=== PATIENT | female | born 1965 | race Caucasian/White ===

== ENCOUNTER → 2020-10-27 17:00 | Outpatient (CLI) | payer BC, SELFPAY ==
--- NOTE | ~2020-10-27 | DEXA_ITS ---
Bone Density Report Name: Louise Acevedo Age: 55 Sex: Female Ethnicity: White Date of : 1965 Indication: postmenopausal; screening for osteoporosis; hysterectomy; Referring Provider: VICENTE PAYNE Study: Bone densitometry was performed. Exam Date: October 27, 2020 Accession number: [id number] Bone Density: Region BMD T-score Z-score Classification AP Spine (L1, L2, L3) 1.045 0.2 1.5 Normal Femoral Neck (Left) 0.941 0.8 2.0 Normal Total Hip (Left) 1.026 0.7 1.5 Normal Femoral Neck (Right) 0.912 0.6 1.7 Normal Total Hip (Right) 1.002 0.5 1.3 Normal Total Hip Mean 1.014 0.6 1.4 Normal World Health Organization criteria for BMD impression classify patients as: Normal (T-score at or above -1.0), Osteopenia (T-score between -1.0 and -2.5), or Osteoporosis (T-score at or below -2.5). 10-year Fracture Risk: FRAX not reported because: All T-scores for Spine Total, Hip Total, Femoral Neck at or above -1.0 Clinical Information Provided by Patient: Has the following medical conditions: Hysterectomy Patient maximum height was 67 Menopause Age: 49 No regular weight bearing exercise Does not regularly consume dairy products Drinks caffeinated beverages Onset of menses at age 10 Number of children 4 Impression: The patient has normal bone mass. Discussion: BONE DENSITY IS ABOVE THE MINIMUM DESIRABLE LEVEL AT ALL SKELETAL SITES TESTED. This patient?s bone mineral density is above the minimum desirable level (T-score -1.0 or better) at all sites measured. The patient should follow a healthful lifestyle (good nutrition with adequate calcium and vitamin D, and appropriate weight-bearing exercise). Follow-Up: Consider repeating this study in 5 years or sooner if there is some new clinical indication. Reported by: ZBIGNIEW on 10/27/2020 5:37:00 PM. Reviewed, dictated and finalized at location AMatt MARTEL
== END ==
PROVIDERS: PCP Emergency Medicine; Visit Provider Obstetrics & Gynecology
DX: Z13.820 Encounter for screening for osteoporosis (principal); Z78.0 Asymptomatic menopausal state
CPT/HCPCS: 77080

== ENCOUNTER → 2020-10-27 17:08 | Outpatient (CLI) | payer BC, SELFPAY ==
--- NOTE | ~2020-10-27 | MM_ITS ---
EXAMINATION: MM screening [facility] BI w justo HISTORY: Screening TECHNIQUE: Craniocaudal and mediolateral oblique 3-D tomosynthesis images were obtained and synthetic 2-D images were generated. CAD analysis was submitted and interpreted. COMPARISON: Comparison to multiple prior studies sequentially, with oldest reviewed study dated 09/2012. BREAST PARENCHYMAL COMPOSITION: There are scattered areas of fibroglandular density. FINDINGS: There is no evidence of suspicious mass, calcification, or architectural distortion to sugg est malignancy in either breast. There has been no suspicious interval change. IMPRESSION: 1. No mammographic evidence of malignancy. 2. Recommend routine screening mammography in one year. BI-RADS Category 1: Negative Reviewed, dictated and finalized at location A.
== END ==
PROVIDERS: Visit Provider Obstetrics & Gynecology
DX: Z12.31 Encounter for screening mammogram for malignant neoplasm of breast (principal)
CPT/HCPCS: 77063; 77067

== ENCOUNTER → 2020-12-22 10:05 | Outpatient (CLI) | payer BC, SELFPAY ==
[2020-12-24 00:05] LABS: SARS-CoV-2 RNA PCR Negative
== END ==
PROVIDERS: PCP Emergency Medicine; Visit Provider Orthopaedic Surgery
DX: Z01.812 Encounter for preprocedural laboratory examination (principal); Z20.822 Contact with and (suspected) exposure to COVID-19
CPT/HCPCS: C9803; U0003; U0005

== ENCOUNTER → 2020-12-22 10:11 | Outpatient (CLI) | payer BC, SELFPAY ==
--- NOTE | ~2020-12-22 | XR_ITS ---
XR ankle RT 2V 12/22/2020 10:29 Indication: Right ankle pain Procedure: 2 views of the right ankle Comparison: No prior studies for comparison. Findings: There is a trimalleolar fracture with mild posterior displacement of the oblique distal fib ular fracture. Ankle mortise grossly intact. Moderate lateral soft tissue swelling. Ankle mortise int act. There is a degenerative calcaneal enthesophyte. Impression: 1: Trimalleolar fracture with mild posterior displacement of the oblique distal fibular fracture. Reviewed, dictated and finalized at location B. Impression: 1: Trimalleolar fracture with mild posterior displacement of the oblique distal fibular fracture.
== END ==
PROVIDERS: Visit Provider Emergency Medicine
DX: S82.851A Displaced trimalleolar fracture of right lower leg, initial encounter for closed fracture (principal)
CPT/HCPCS: 73600

== ENCOUNTER 2020-12-24 02:52 | Day surgery (SDC) | payer BC, SELFPAY ==
[2020-12-22 14:48] VITALS: BMI 29.0
[2020-12-24] VITALS (12 sets, daily range): BP systolic 122–158; BP diastolic 63–78; PULSE 72–85; RESP 10–16; TEMP 36.1–36.9; O2SAT 97–100
--- NOTE | ~2020-12-24 | XR_ITS ---
EXAMINATION: XR surgery orthopedic EXAM DATE: 12/24/2020 11:05 INDICATION: Right ankle ORIF. TECHNIQUE: Fluoroscopy used during XR surgery orthopedic performed by Dr. Matheus Crystal MD. Rad iologist was not present for the imaging or procedure. Total fluoroscopic time of 69 seconds. The D AP for this procedure was 0.046 mGym2. A total of 4 images sent to PACS from the exam. Correlation i s made to ankle x-ray 12/23/2019. FINDINGS: Status post right ankle ORIF. There is been interval reduction in the fibular posterior di splacement, which has been fixed with plate and screws. There are 2 screws fixing a reduced posterior malleolar fracture and a single screw bridging the medial malleolar fracture. Mortise alignment appe ars anatomic. Correlate with procedure note. IMPRESSION: Fluoroscopy used during right ankle trimalleolar ORIF. Reviewed, dictated and finalized at location A.
--- NOTE | 2020-12-24 07:04 | ECG_ITS ---
Measurements Intervals [place] Rate: 75 P: 3 ND: 189 QRS: 8 QRSD: 95 T: 52 QT: 360 QTc: 404 Interpretive Statements SINUS RHYTHM BASELINE ARTIFACT- I, III NORMAL ECG Electronically Signed On 12-24-2020 8:40:50 CDT by Christ Mike D.O.
--- NOTE | 2020-12-24 07:07 | WPDHPUPDATE1 ---
History and Physical Update Update Date/Time: 12/24/20 07:07 History and Physical has been reviewed, including an updated exam of the patient. There are NO changes in the patient's condition. Covid test negative. Risks, benefits, and alternatives have been discussed and questions answered. Patient agrees to proceed with procedure.
[2020-12-24] MEDS: ACETAMINOPHEN 500 MG TABLET 1000 MG PO (07:32)
[2020-12-24] MEDS: LACTATED RINGERS 1,000 ML 30 ML IV CONT ×2 (07:43→11:24)
[2020-12-24] MEDS: KETOROLAC 15 MG/ML VIAL (*BKC) IV PUSH (07:45)
--- NOTE | 2020-12-24 07:55 | WPDANESPNB ---
Anes - Peripheral Nerve Block Date/Time: 12/24/20 07:55 I have discussed with the patient/family/POA the placement of a peripheral nerve block for post-operative pain management, including associated risks, benefits, complications, and side effects. Alternative methods of post-operative analgesia were detailed. Questions were solicited and answers provided to the satisfaction of the patient/family/POA. Time-Out: A pre-procedural Time-Out was completed immediately before starting the procedure and confirmed: Patient Identification, Site, Procedure, Patient Position and the Availability of Requisite Equipment. Clinical Indications: Acute post-operative pain management requested by the operative surgeon. Nerve Block Insertion Note Anes-nerve block: posterior fossa sciatic (20cc) right and adductor canal (10cc) right Patient position: supine Skin prep: chlorhexidine Needle: 22 gauge, stimulating, insulated echogenic needle. Needle length: 80 mm Technique: ultrasound (in plane) Injectate: bupivacaine 0.5% with epi 5 mcg/ml (30cc) Observations: tolerated well Complications: none Procedure start time:: 850 Procedure end time:: 855
--- NOTE | 2020-12-24 08:01 | WPDANESEPPF ---
Anes - Initial Pre Proc Eval Procedure: Operation Date: 12/24/20 09:00 Proposed Procedures p Open Reduction Internal Fixation Right Trimalleolar Ankle Fracture - Matheus Crystal MD Date/Time: 12/24/20 08:01 Surgeon: Matheus Crystal MD Pre Op Diagnosis: right ankle trimalleolar fx Patient Data Age: 55 Gender: F Height: 5 ft 7 in Weight: 89.1 kg Last Vital Signs Temp 96.9 F L 12/24/20 06:55 Pulse 85 12/24/20 06:55 Resp 16 12/24/20 06:55 BP 133/74 12/24/20 06:55 Pulse Ox 99 12/24/20 06:55 Allergies Allergy/AdvReac Type Severity Reaction Status Date / Time liraglutide Allergy Intermediate Nausea and Verified 12/24/20 07:21 Vomiting oxycodone Allergy Intermediate Nausea and Verified 12/24/20 07:21 Vomiting tramadol Allergy Intermediate Palpitation Verified 12/24/20 07:21 s Home Medications Medication Instructions Recorded Confirmed Type empagliflozin 10 mg tablet See Rx Instructions .ROUTE 09/08/20 12/24/20 Rx .COMPLEX #90 tablet glyburide 5 mg tablet See Rx Instructions .ROUTE 09/08/20 12/24/20 Rx .COMPLEX #180 tablet lisinopril 20 mg tablet 20 mg PO DAILY #90 tablet 09/08/20 12/24/20 Rx sitagliptin 100 mg tablet 100 mg PO DAILY #90 tablet 09/08/20 12/24/20 Rx naproxen sodium 220 mg tablet 220 mg PO Q12H 12/22/20 12/24/20 History vitamin D47-rrtra acid 1 tablet PO DAILY 12/22/20 12/24/20 History Laboratory Tests 12/24/20 07:18 Sodium Pending Potassium Pending Chloride Pending Carbon Dioxide Pending Anion Gap Pending BUN Pending Creatinine Pending Estim Creat Clear Calc Pending Estimated GFR Pending Glucose Pending Calcium Pending Patient hx anesthesia problems: none Family hx anesthesia problems: none PMFSH Past Medical History Medical History (Updated 12/22/20 @ 13:06 by Matheus Crystal MD) Anemia Diabetes History of vaginal delivery x 4 HTN (hypertension) Hypertension Mitral valve prolapse Surgical History Surgical History History of cholecystectomy History of hysterectomy Family History Family History Grandparent Family history of malignant neoplasm of breast Diabetes mellitus Father Family history of malignant neoplasm of urinary bladder, Onset Age: 67 Mother Family history of arthritis Social History Social History Smoking status: Never smoker Alcohol intake: never Alcohol use details: RARE Substance use: never Substance use type: does not use Living arrangements: with family Spiritual care concerns: No Anes - Eval Final PreProcedure Day of Procedure 12/24/20 08:01 Patient weight: obese Heart: regular rate and rhythm Lungs: clear to auscultation Airway: Mallampati scale class II Neurological: alert and oriented Last oral intake: >/= 8 hours ASA classification: III Emergent: no Anesthetic plan: proceed Anesthesia type and monitoring: general LMA (agreeable to Nerve block for postop pain control) and standard monitoring Informed Consent: The patient's anesthetic plan and its attendant risks and benefits were discussed with the patient/family/POA. Questions were solicited and answers provided to the satisfaction of the patient/family/POA.
[2020-12-24 08:04] LABS: Anion Gap 8 mmol/L (8-16); Blood Urea Nitrogen 11 mg/dL (7-17); Calcium 9.1 mg/dL (8.4-10.2); Carbon Dioxide 25 mmol/L (22-30); Chloride 108 mmol/L (98-107); Estimated CRCL calculation 119 ml/min; Estimated Glomerular Filt Rate > 60; Glucose 154 mg/dL (65-105); Sodium 141 mmol/L (137-145)
[2020-12-24] MEDS: ceFAZolin 2 GM/D5W 50 ML 2 GM/50 ML BAG IVPB (09:02)
--- NOTE | 2020-12-24 11:35 | SUR.PHASEI ---
1136- Call to Dr. Puente to notify of patient's BG being [address] Puente no intervention needed. Will continue to monitor.
--- NOTE | 2020-12-24 11:41 | W.PM.PROC2 ---
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 She presents now for operative treatment. Description of Procedure What was done: After informed consent, the operative extremity was marked in the preoperative holding area. Patient received intravenous antibiotics. Patient was then taken to the operating room and underwent general anesthesia by the anesthesia team. They were positioned supine on the operating room table. A time-out was performed confirming the patient, site of the surgery, operative plan. Lower extremity then prepped and draped in the usual sterile surgical fashion using ChloraPrep skin solution. Foot and ankle exsanguinated and a thigh tourniquet inflated to 250 mmHg. Longitudinal incision made over the lateral ankle distal fibula with a 15 blade knife. Hemostasis controlled with electrocautery. Full-thickness soft tissue flaps developed and the fascia was incised in line with the skin incision. Fracture identified and cleared with a dental pick, irrigation and rongeur. Noted to be extensive soft tissue stripping from the fibula as well as the anterior and posterior portions of the visualized ankle joint. The distal fracture fragment was retracted posteriorly in the lateral portion of the ankle joint could be visualized. Debris was cleared from this and thorough irrigation done and suctioned. [place] elevator was able to be placed into the posterior malleolus fracture which allowed the fracture to be immobilized. The lateral malleolus was addressed. Fracture reduced and held with bone-holding clamp. Image intensification confirmed reduction of the fracture and the ankle mortise. Fixation achieved with Neutralization type fixation with a lateral plate with unicortical screws distal to fracture and bicortical screws proximal to the fracture. Good alignment and stability of the fracture noted. Image intensification used to confirm reduction of the fracture and placement of the hardware. Longitudinal incision then made with 15 blade knife over the medial distal tibia and medial malleolus. Hemostasis controlled electrocautery. Periosteum incised in line with skin incision. There is a comminuted fracture of the distal anterior medial malleolus as well as the posterior malleolus which extended around to the medial aspect of the distal tibia. The posterior tibial tendon and flexor digitorum more mobilized and retracted. Care was taken to protect the neurovascular bundle. Posterior malleolus fracture was then reduced and provisionally pinned. This was checked with image intensification. Fixation achieved with a 4.0 mm cannulated screw as well as a 2.7 mm solid screw placed from posterior to anterior. Good compression of the fracture noted. Image intensification confirmed well-maintained reduction and placement of the hardware. The medial malleolus piece was then reduced and fixed with a 2.7 mm solid screw. Image intensification confirmed final reduction of the fractures and placement of the hardware. Stress of the ankle performed with good stability of the ankle mortise in all directions. Wound thoroughly irrigated with antibiotic solution. Tourniquet released and bleeding points coagulated. Fascia repaired with 00 Vicryl interrupted suture. Subcutaneous tissue repaired with 000 Monocryl interrupted suture and 0000 nylon interrupted suture. Sterile dressings applied. Padded splint then applied. Good capillary refill noted in the toes. Palpable dorsalis pedis pulse prior to placement of the dressing. Patient awoken from anesthesia, extubated and taken
--- NOTE | 2020-12-24 12:37 | SUR.PHASEII ---
Called office about knee scooter and handicap tag. RN left a message.
--- NOTE | 2020-12-24 13:33 | SUR.PHASEII ---
RN spoke with office and got an order for a knee scooter and a handicap tag. is going to pick-up from office.
[2020-12-24 16:35] LABS: Glucose Point of Care 208 mg/dl (65-105)
== END 2020-12-24 13:50 | disposition home or self-care (01) ==
PROVIDERS: Anesthesiology; PCP Emergency Medicine; Visit Provider Orthopaedic Surgery
PROC: (CPT 27823; principal; 2020-12-24 09:00)
DX: S82.851A Displaced trimalleolar fracture of right lower leg, initial encounter for closed fracture (principal); G89.18 Other acute postprocedural pain; W19.XXXA Unspecified fall, initial encounter; I10 Essential (primary) hypertension; I34.1 Nonrheumatic mitral (valve) prolapse; E11.9 Type 2 diabetes mellitus without complications; D64.9 Anemia, unspecified; Z79.84 Long term (current) use of oral hypoglycemic drugs; E66.9 Obesity, unspecified; Z68.30 Body mass index [BMI] 30.0-30.9, adult
CPT/HCPCS: 27823; 64445; 64447; 36415; 80048; 82948; 93005; A9270; C1713; C1769; J0690; J1100; J1200; J1885; J2250; J2405; J2704; J3010; J7120

== ENCOUNTER → 2021-05-21 10:22 | Outpatient (CLI) | payer BC, SELFPAY ==
--- NOTE | ~2021-05-21 | XR_ITS ---
EXAMINATION: XR knee LT 2V DATE: 05/21/2021 10:59 INDICATION: Left knee pain TECHNIQUE: Two views of the left knee were obtained. COMPARISON: 1114 FINDINGS: Alignment is normal. No fracture or osteochondral lesion. There is mild tricompartmental os teoarthritis characterized by tiny marginal osteophytes. There is also mild to moderate joint space n arrowing in the medial compartment with interval worsening since the prior examination. No joint effu vonda/synovitis. Soft tissues are unremarkable. IMPRESSION: 1. Mildly worsened osteoarthritis without acute osseous abnormality. Reviewed, dictated and finalized at location B.
--- NOTE | ~2021-05-21 | XR_ITS ---
EXAMINATION: XR knee RT 2V DATE: 05/21/2021 10:59 INDICATION: Right knee pain TECHNIQUE: Two views of the right knee were obtained. COMPARISON: None. FINDINGS: Alignment is normal. No fracture or osteochondral lesion. There is mild tricompartmental os teoarthritis characterized by tiny marginal osteophytes and medial compartmental narrowing. No joint effusion/synovitis. Soft tissues are unremarkable. IMPRESSION: 1. No acute osseous abnormality. Reviewed, dictated and finalized at location B.
== END ==
PROVIDERS: PCP Emergency Medicine; Visit Provider Emergency Medicine
DX: M25.569 Pain in unspecified knee (principal); M17.12 Unilateral primary osteoarthritis, left knee
CPT/HCPCS: 73560

== ENCOUNTER 2021-07-20 01:44 | Day surgery (SDC) | payer BC, SELFPAY ==
[2021-07-06 09:14] VITALS: BMI 27.9
[2021-07-12 09:06] VITALS: BMI 27.9
[2021-07-20 09:31] VITALS: BP 160/83; PULSE 82; RESP 18; TEMP 36.3; O2SAT 100; BMI 26.6
[2021-07-20] MEDS: LACTATED RINGERS 1,000 ML 150 ML IV CONT (09:38)
--- NOTE | 2021-07-20 09:54 | WPDANESEPPF ---
Anes - Initial Pre Proc Eval Procedure: Operation Date: 07/20/21 10:30 Proposed Procedures p Screening Colonoscopy - Beau Lazo MD Date/Time: 07/20/21 09:54 Surgeon: Beau Lazo MD Pre Op Diagnosis: neoplasm screening Patient Data Age: 56 Gender: F Height: 1.7 m Weight: 77.3 kg Last Vital Signs Temp 97.3 F L 07/20/21 09:31 Pulse 82 07/20/21 09:31 Resp 18 07/20/21 09:31 BP 160/83 H 07/20/21 09:31 Pulse Ox 100 07/20/21 09:31 Allergies Allergy/AdvReac Type Severity Reaction Status Date / Time liraglutide Allergy Intermediate Nausea and Verified 07/12/21 09:06 Vomiting oxycodone Allergy Intermediate Nausea and Verified 07/12/21 09:06 Vomiting tramadol Allergy Intermediate Palpitation Verified 07/12/21 09:06 s Home Medications Medication Instructions Recorded Confirmed Type lisinopril 20 mg tablet 20 mg PO DAILY #90 tablet 05/14/21 07/12/21 Rx sitagliptin 100 mg tablet 100 mg PO DAILY #90 tablet 05/14/21 07/12/21 Rx empagliflozin [Jardiance] 10 mg PO DAILY 07/06/21 07/12/21 History glyburide 5 mg PO BID 07/06/21 07/12/21 History Patient hx anesthesia problems: none Family hx anesthesia problems: none Results Review: All pre-operative results and documents have been reviewed as part of the pre-operative evaluation. [facility] Past Medical History Medical History Anemia Arthritis of knee, degenerative Diabetes Encounter for postoperative care History of vaginal delivery x 4 HTN (hypertension) Hypertension Mitral valve prolapse Surgical History Surgical History H/O shoulder surgery History of ankle surgery History of cholecystectomy History of hysterectomy Family History Family History Grandparent Family history of malignant neoplasm of breast Diabetes mellitus Father Family history of malignant neoplasm of urinary bladder, Onset Age: 67 Mother Family history of arthritis Social History Social History Smoking status: Never smoker Alcohol intake: current Alcohol use details: occasional Substance use: never Substance use type: does not use Living arrangements: with family Spiritual care concerns: No Anes - Eval Final PreProcedure Day of Procedure 07/20/21 09:54 Patient weight: overweight Heart: regular rate and rhythm Lungs: clear to auscultation Airway: Mallampati scale class II Neurological: alert and oriented Last oral intake: >/= 8 hours ASA classification: III Emergent: no Anesthetic plan: proceed Anesthesia type and monitoring: general GIVS and standard monitoring Results Review: All pre-operative results and documents have been reviewed as part of the pre-operative evaluation. Informed Consent: The patient's anesthetic plan and its attendant risks and benefits were discussed with the patient/family/POA. Questions were solicited and answers provided to the satisfaction of the patient/family/POA.
--- NOTE | 2021-07-20 09:55 | WPDGICN ---
Assessment and Plan Assessment and plan (1) Colon cancer screening: Code(s): Z12.11 - Encounter for screening for malignant neoplasm of colon Status: Acute Assessment and Plan: Patient presents today for screening colonoscopy. She appears to be at average risk for colon polyps. Further recommendations will be given after endoscopy. GI Consult Note Consult date/time: 07/20/21 09:55 HPI: Louise Acevedo is a 56 year old female Presents for screening colonoscopy. Patient's current weight appetite and bowel movements are normal. She denies abdominal pain. She has had no bleeding. Family history is noncontributory. Review of Systems Review of Systems: All systems reviewed & are unremarkable except as noted in HPI and below PMFSH Past Medical History Medical History Anemia Arthritis of knee, degenerative Diabetes Encounter for postoperative care History of vaginal delivery x 4 HTN (hypertension) Hypertension Mitral valve prolapse Surgical History Surgical History H/O shoulder surgery History of ankle surgery History of cholecystectomy History of hysterectomy Family History Family History Grandparent Family history of malignant neoplasm of breast Diabetes mellitus Father Family history of malignant neoplasm of urinary bladder, Onset Age: 67 Mother Family history of arthritis Social History Social History Smoking status: Never smoker Alcohol intake: current Alcohol use details: occasional Substance use: never Substance use type: does not use Living arrangements: with family Spiritual care concerns: No Meds Home Medications and Allergies Home Medications Medication Instructions Recorded Confirmed Type lisinopril 20 mg tablet 20 mg PO DAILY #90 tablet 05/14/21 07/12/21 Rx sitagliptin 100 mg tablet 100 mg PO DAILY #90 tablet 05/14/21 07/12/21 Rx empagliflozin [Jardiance] 10 mg PO DAILY 07/06/21 07/12/21 History glyburide 5 mg PO BID 07/06/21 07/12/21 History Allergies Allergy/AdvReac Type Severity Reaction Status Date / Time liraglutide Allergy Intermediate Nausea and Verified 07/12/21 09:06 Vomiting oxycodone Allergy Intermediate Nausea and Verified 07/12/21 09:06 Vomiting tramadol Allergy Intermediate Palpitation Verified 07/12/21 09:06 s Vital Signs Vital Signs - 24 hr 07/20/21 09:31 Temperature 97.3 F L Pulse Rate 82 Respiratory Rate 18 Blood Pressure 160/83 H Pulse Oximetry 100 Exam Narrative: Physical exam reveals patient to be alert. Vital signs stable. HEENT exam is unremarkable. Patient is anicteric. Lungs are clear to auscultation and percussion. Heart is without murmur or extra sounds. Abdominal exam bowel sounds are present soft nontender with no organomegaly. Digital external rectal exam is normal.
[2021-07-20 10:16] VITALS: BP 115/61; PULSE 80; RESP 20; O2SAT 100
[2021-07-20 10:21] LABS: Glucose Point of Care 197 mg/dl (65-105)
[2021-07-20 10:26] VITALS: BP 110/54; PULSE 82; RESP 31; O2SAT 100
[2021-07-20 10:36] VITALS: BP 112/64; PULSE 78; RESP 23; O2SAT 100
== END 2021-07-20 10:36 | disposition home or self-care (01) ==
PROVIDERS: PCP Emergency Medicine; Visit Provider Internal Medicine Gastroenterology
PROC: 0DJD8ZZ Inspection of Lower Intestinal Tract, Via Natural or Artificial Opening Endoscopic (ICD-10-PCS; CPT 45378; principal; 2021-07-20 10:30)
DX: Z12.11 Encounter for screening for malignant neoplasm of colon (principal); K64.8 Other hemorrhoids; D64.9 Anemia, unspecified; E11.9 Type 2 diabetes mellitus without complications; I10 Essential (primary) hypertension; I34.1 Nonrheumatic mitral (valve) prolapse; M17.10 Unilateral primary osteoarthritis, unspecified knee
CPT/HCPCS: 45378; 82948; J2704; J7120

== ENCOUNTER → 2022-01-27 13:29 | Outpatient (CLI) | payer BC, SELFPAY ==
--- NOTE | ~2022-01-27 | MM_ITS ---
EXAMINATION: MM screening [facility] BI w justo HISTORY: Screening mammogram TECHNIQUE: Craniocaudal and mediolateral oblique 3-D tomosynthesis images were obtained and synthetic 2-D images were generated. CAD analysis was submitted and interpreted. COMPARISON: 10/27/2020, 09/10/2018, 05/03/2017 BREAST PARENCHYMAL COMPOSITION: The breasts are heterogeneously dense, which may obscure small masses . FINDINGS: There is no suspicious mass, calcification, or architectural distortion to suggest malignan cy in either breast. There has been no suspicious interval change. IMPRESSION: 1. No mammographic evidence of malignancy. 2. Recommend routine screening mammography in one year. BI-RADS Category 1: Negative Reviewed, dictated and finalized at location A.
== END ==
PROVIDERS: PCP Emergency Medicine; Visit Provider Obstetrics & Gynecology
DX: Z12.31 Encounter for screening mammogram for malignant neoplasm of breast (principal)
CPT/HCPCS: 77063; 77067

== ENCOUNTER 2023-01-12 09:33 | Outpatient (CLI) | payer BC, SELFPAY ==
--- NOTE | 2023-01-12 09:42 | EST_ITS ---
Patient Info Name: Louise Acevedo Age: 57 years : 1965 Gender: Female Ht: 67 in Wt: 174 lbs BSA: 1.95 m2 BP: 141 / 74 mmHg Exam Date: 01/12/2023 10:09 AM Exam Location: [facility] Pul[facility] Patient Status: Outpatient Admit Date: 01/12/2023 Staff Ordering Physician: Jose L Andrew MD [employer] Back Counter Man: Natali Villanueva RDCS Attending Provider: Jose L Andrew MD Referring Physician: Lorrie WILLIS; Exercise Technologist: Candice Knight CT Exercise Physician: Christ Mike DO Exam Type: CA stress echo Study Info Indications R00.2 - Palpitations Treadmill exercise stress echocardiogram is performed. Summary 1. 1. Negative Nasir exercise stress test for ischemic ST changes by ECG criteria. 2. 2. Good functional capacity, achieving 8 METs of workload. 3. 3. Appropriate HR response to exercise. 4. 4. Appropriate HR recovery at 1 minute post exercise. 5. 5. Negative stress echocardiogram for ischemia by wall motion analysis. 6. 6. Patient informed of the above results. Stress Echo Findings Left Ventricle Appropriate increase in LV endocardial thickening with systole. Appropriate augmentation of contractility with systole. No wall motion abnormality. Left Ventricle Normal LV systolic function, no wall motion abnormality. Protocol: Nasir Stress ECG Details Stage: REST Duration (min): 2 min : 18 sec Speed (mph): 0.0 Grade (%): 0 HR (bpm): 68 SBP (mmHg): 141 DBP (mmHg): 74 METS: --- Stage: REST Duration (min): 13 min : 32 sec Speed (mph): 0.0 Grade (%): 0 HR (bpm): 79 SBP (mmHg): 141 DBP (mmHg): 74 METS: --- Stage: STAGE 1 Duration (min): 1 min : 0 sec Speed (mph): 1.7 Grade (%): 10 HR (bpm): 99 SBP (mmHg): 141 DBP (mmHg): 74 METS: --- Stage: STAGE 1 Duration (min): 2 min : 0 sec Speed (mph): 1.7 Grade (%): 10 HR (bpm): 112 SBP (mmHg): 141 DBP (mmHg): 74 METS: --- Stage: STAGE 1 Duration (min): 3 min : 0 sec Speed (mph): 1.7 Grade (%): 10 HR (bpm): 121 SBP (mmHg): 180 DBP (mmHg): 60 METS: --- Stage: STAGE 2 Duration (min): 1 min : 0 sec Speed (mph): 2.5 Grade (%): 12 HR (bpm): 132 SBP (mmHg): 180 DBP (mmHg): 60 METS: --- Stage: STAGE 2 Duration (min): 2 min : 0 sec Speed (mph): 2.5 Grade (%): 12 HR (bpm): 140 SBP (mmHg): 195 DBP (mmHg): 66 METS: --- Stage: STAGE 2 Duration (min): 3 min : 0 sec Speed (mph): 2.5 Grade (%): 12 HR (bpm): 148 SBP (mmHg): 195 DBP (mmHg): 66 METS: --- Stage: STAGE 3 Duration (min): 1 min : 0 sec Speed (mph): 3.4 Grade (%): 14 HR (bpm): 155 SBP (mmHg): 180 DBP (mmHg): 63 METS: --- Stage: STAGE 3 Duration (min): 2 min : 0 sec Speed (mph): 0.0 Grade (%): 0 HR (bpm): 131 SBP (mmHg): 180 DBP (mmHg): 63 METS: --- Stage: STAGE 3 Duration (min): 2 min : 22 sec Speed (mph): 0.0 Grade (%): 0 HR (bpm): 129 SBP (mmHg): 180 DBP (mmHg): 63 METS: --- Stage: RECOVERY Durat
--- NOTE | 2023-01-12 10:42 | ECG_ITS ---
Measurements Intervals [place] Rate: 84 P: 53 MT: 198 QRS: 16 QRSD: 103 T: 130 QT: 414 QTc: 492 Interpretive Statements SINUS RHYTHM MARKED T-WAVE ABNORMALITY, CONSIDER ANTEROLATERAL ISCHEMIA [-0.5+ mV T WAVE IN I/aVL/V3-V6] COMPARED TO ECG 12/24/2020 07:24:03 T-WAVE ABNROMALITY NOW PRESENT IN THE ANTEROLATERAL LEADS Electronically Signed On 01-12-2023 11:52:37 CDT by Jigar Rodriguez M.D.
== END 2023-01-12 09:34 | disposition home or self-care (01) ==
PROVIDERS: PCP Emergency Medicine; Visit Provider Emergency Medicine
DX: R00.2 Palpitations (principal); R94.31 Abnormal electrocardiogram [ECG] [EKG]
CPT/HCPCS: 93005; 93351

== ENCOUNTER → 2023-02-21 16:01 | Outpatient (CLI) | payer BC, SELFPAY ==
--- NOTE | ~2023-02-21 | MM_ITS ---
EXAMINATION: MM screening [facility] BI w justo HISTORY: Screening mammogram TECHNIQUE: Craniocaudal and mediolateral oblique 3-D tomosynthesis images were obtained and synthetic 2-D images were generated. CAD analysis was submitted and interpreted. COMPARISON: 01/27/2022, 10/27/2020, 09/10/2018 BREAST PARENCHYMAL COMPOSITION: The breasts are heterogeneously dense, which may obscure small masses . FINDINGS: No suspicious mass, calcification, or architectural distortion are identified in either george ast to suggest malignancy. There has been no suspicious interval change. IMPRESSION: 1. No mammographic evidence of malignancy. 2. Recommend routine screening mammography in one year. BI-RADS Category 1: Negative Reviewed, dictated and finalized at location A.
== END ==
PROVIDERS: PCP Obstetrics & Gynecology; Visit Provider Obstetrics & Gynecology
DX: Z12.31 Encounter for screening mammogram for malignant neoplasm of breast (principal)
CPT/HCPCS: 77063; 77067

== ENCOUNTER 2024-02-24 07:58 | Outpatient (CLI) | payer BC, SELFPAY ==
--- NOTE | ~2024-02-24 | MM_ITS ---
EXAMINATION: MM screening [facility] BI w justo HISTORY: Screening TECHNIQUE: Craniocaudal and mediolateral oblique 3-D tomosynthesis images were obtained and synthetic 2-D images were generated. CAD analysis was submitted and interpreted. COMPARISON: Comparison to multiple prior studies sequentially, with oldest reviewed study dated 03/2015. BREAST PARENCHYMAL COMPOSITION: Dense: The breasts are heterogeneously dense, which may obscure small masses FINDINGS: Bilateral breast asymmetries are stable. There is no evidence of suspicious mass, calcifica tion, or architectural distortion to suggest malignancy in either breast. There has been no suspiciou s interval change. IMPRESSION: 1. No mammographic evidence of malignancy. 2. Recommend routine screening mammography in one year. BI-RADS Category 1: Negative Reviewed, dictated and finalized at location B.
== END 2024-02-24 07:59 ==
PROVIDERS: PCP Emergency Medicine; Visit Provider Obstetrics & Gynecology
DX: Z12.31 Encounter for screening mammogram for malignant neoplasm of breast (principal)
CPT/HCPCS: 77063; 77067

== ENCOUNTER 2025-02-28 07:34 | Outpatient (CLI) | payer BC, SELFPAY ==
--- NOTE | ~2025-02-28 | MM_ITS ---
EXAMINATION: MM screening [facility] BI w justo HISTORY: Screening TECHNIQUE: Craniocaudal and mediolateral oblique 3-D tomosynthesis images were obtained and synthetic 2-D images were generated. CAD analysis was submitted and interpreted. COMPARISON: Comparison to multiple prior studies sequentially, with oldest reviewed study dated 04/16. BREAST PARENCHYMAL COMPOSITION: Dense: The breasts are heterogeneously dense, which may obscure small masses FINDINGS: There is no evidence of suspicious mass, calcification, or architectural distortion to sugg est malignancy in either breast. There has been no suspicious interval change. IMPRESSION: 1. No mammographic evidence of malignancy. 2. Recommend routine screening mammography in one year. BI-RADS Category 1: Negative Reviewed, dictated and finalized at location A.
== END 2025-02-28 07:35 | disposition home or self-care (01) ==
PROVIDERS: PCP Obstetrics & Gynecology; Visit Provider Emergency Medicine
DX: Z12.31 Encounter for screening mammogram for malignant neoplasm of breast (principal)
CPT/HCPCS: 77063; 77067

== ENCOUNTER 2025-05-26 11:13 | Outpatient (CLI) | payer BC, SELFPAY ==
--- NOTE | ~2025-05-26 | XR_ITS ---
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 Findings: No acute fracture or malalignment. Moderate to severe tricompartmental degenerative changes with small joint effusion Soft tissues unremarkable. Impression: No acute fracture or malalignment. Reviewed, dictated and finalized at location P. NAUTICAL INSPECTOR Impression: No acute fracture or malalignment.
--- NOTE | ~2025-05-26 | XR_ITS ---
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 Findings: No acute fracture or malalignment. Moderate tricompartmental degenerative changes, small effusion Soft tissues unremarkable. Impression: No acute fracture or malalignment. Reviewed, dictated and finalized at location P. S CUTTING MACHINE OPERATOR Impression: No acute fracture or malalignment.
== END 2025-05-26 11:14 | disposition home or self-care (01) ==
PROVIDERS: PCP Emergency Medicine; Visit Provider Orthopaedic Surgery
DX: M25.561 Pain in right knee (principal); M25.562 Pain in left knee
CPT/HCPCS: 73564